=== PATIENT | male | born 1950 | race Two or more races ===

== ENCOUNTER 2018-01-05 06:50 | Inpatient (IN) | payer BC, OTHER ==
[2018-01-04 09:04] VITALS: BMI 34.7
[2018-01-05] MEDS ORDERED: BUPIVACAINE HCL/PF 0.5% (5MG/ML) 10 ML VIAL ONE (08:25)
[2018-01-05] MEDS ORDERED: MIDAZOLAM HCL 2 MG/2 ML SINGLE DOSE VIAL ONE ×2 (08:27)
--- NOTE | 2018-01-05 08:52 | CONSULT ---
Consult - text type - Consultation Consultation Note: full consult dictated imp: infected hardware left ankle plan: --> OR for LUCERO and currettage of bone with I&D
[2018-01-05] MEDS ORDERED: ONDANSETRON 4 MG/2 ML VIAL IVPUSH PRN (09:10)
[2018-01-05] MEDS ORDERED: PROPOFOL 20 ML ONE (09:11)
[2018-01-05] MEDS ORDERED: ceFAZolin SODIUM 1 GM VIAL ONE (09:13)
[2018-01-05] MEDS ORDERED: SODIUM CHLORIDE 0.9% P/F 10 ML VIAL IJ ONE (09:13)
[2018-01-05] MEDS ORDERED: DEXAMETHASONE SOD PHOSPHATE 4 MG/1 ML VIAL ONE (09:13)
[2018-01-05] MEDS ORDERED: DESFLURANE GAS 240 ML BOTTLE IH ONE (09:15)
--- NOTE | 2018-01-05 09:29 | CONS ---
DATE OF CONSULTATION: 01/05/2018 ORTHOPEDIC CONSULTATION/[facility] Patient is a 67-year-old male who was status post open reduction, internal fixation of the left distal tibia at [facility] 2-3 years ago. 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 Multiple attempts at antibiotics, wound care, hyperbaric all have been fruitless in stemming this infection. I had seen the patient in the office and we went through risks, benefits, and alternatives, and the patient was being admitted for removal of plate, curettage of the bone, irrigation, and debridement. Patient presents today in the same day surgical unit for this procedure to go forward. PHYSICAL EXAMINATION: He has good motion in hip, knee, ankle, and toes. He does have a draining sinus over the medial distal tibia a few centimeters up from the ankle joint. No erythema. No tenderness laterally. Calf is soft, nontender. Negative Woods sign, otherwise neurovascularly intact, good pulses. IMPRESSION: Infected hardware, left distal tibia with chronic draining sinus. Risks, benefits, and alternatives discussed with patient in great detail once again. Will bring the patient to the operating room for removal of hardware, exploration of the distal tibia, irrigation and debridement, possible bone curettage and drilling of any bone in the region. Patient understands that removal of hardware plate that was put in a while ago can be very difficult procedure, and repeat exploration of the distal tibia can be complicated with wound problems, skin problems, and the potential of significant complications postoperatively including wound issues, infection, possible below-knee amputation at a later date is a distinct although remote possibility. Patient understands and would like to go forward. We will admit the patient postoperatively for IV antibiotics as per Infectious Disease consultation. has been following the patient all along. ALY DUONG M.D. GABBY/[id number]
[2018-01-05] MEDS ORDERED: ePHEDrine SULFATE 50 MG/1 ML AMPULE ONE (11:09)
[2018-01-05] MEDS ORDERED: ceFAZolin SODIUM 1 GM VIAL IVPB ONE (11:21)
[2018-01-05] MEDS ORDERED: oxyCODONE HCL 5 MG TABLET PO PRN (11:34)
--- NOTE | 2018-01-05 11:38 | OP ---
Operative Note - Note: Operative Date: 01/05/18 ([facility]) Pre-Operative Diagnosis: left ankle chronic osteomyelitis s/p orif Operation: left ankle removal of hardware Post-Operative Diagnosis: Same as Pre-op Surgeon: José Luis Miller Instructional Aide: Kofi Boateng Anesthesiologist/ENVIRONMENTAL FIELD SERVICES TECHNICIAN: Gypsy Dickerson Anesthesia: General Specimens Removed: plate, screws Estimated Blood Loss (mls): 5 (tourniquet) Operative Report Dictated: Yes
[2018-01-05] MEDS: LACTATED RINGERS SOLUTION 1,000 ML IV SCH (14:05)
--- NOTE | 2018-01-05 16:02 | CON.ID ---
Consult Consult Specialty:: infectious diseases Referred by:: Reason for Consultation:: Non healing ulcer of the leg - History of Present Illness Chief Complaint: draiange tract of the leg,osteomylitis non healing wound of the left leg History of Present Illness: this is a 68 y/o male who was developed a tract on the left leg which has been constantly draining for more than couple of months patient who had an accident couple of years back and had hardware placed. patient continued to have drainage from the tract and the tract had indeed gone upto the bone patient was initially started on abx and cx were taken patient was also told the tract would not heal untill patient had the hardware removed finally the patient agreed for the same and underwent hardware removal initially when the cultures were send patient grew staph epidermidis and was started on oral abx. patient it seems could not tolerated it so after couple of days stopped taking abx now the patient is post op and has undergone removal of the hardware and the foot is in dressing patient also is a diabetic currently patient is comfortable and has no complaints all the cx have been send from the operating room - History Source History Provided By: Patient Limitations to Obtaining History: No Limitations - Alcohol/Substance Use Hx Alcohol Use: Yes (OCCAS) - Smoking History Smoking history: Never smoked Have you smoked in the past 12 months: No If you are a former smoker, when did you quit?: 50 years ago Home Medications - Allergies Allergies/Adverse Reactions: Allergies Allergy/AdvReac Type Severity Reaction Status Date / Time No Known Allergies Allergy Verified 01/05/18 07:34 - Home Medications Home Medications: Ambulatory Orders Amlodipine Besylate 5 mg PO DAILY 08/20/17 Farxiga 10 mg PO DAILY 08/20/17 Hydrochlorothiazide 25 mg PO DAILY 08/20/17 Lisinopril 40 mg PO DAILY 08/20/17 Metformin HCl 1,000 mg PO BID 08/20/17 Novolog 5 units SCJ DAILY 08/20/17 Pioglitazone HCl 30 mg PO DAILY 08/20/17 Rosuvastatin 20 mg PO HS 08/20/17 Toujeo Solostar 15 units SCJ DAILY 08/20/17 Oxycodone HCl/Acetaminophen [Percocet 5-325 mg Tablet -] 1 - 2 tab PO Q6H #30 tab MDD 8 01/05/18 Review of Systems - Review of Systems Constitutional: reports: No Symptoms Eyes: reports: No Symptoms HENT: reports: No Symptoms Neck: reports: No Symptoms Cardiovascular: reports: No Symptoms Respiratory: reports: No Symptoms Gastrointestinal: reports: No Symptoms Genitourinary: reports: No Symptoms Musculoskeletal: reports: Other (non healing wound of the left leg,osteo of the left leg) Integumentary: reports: No Symptoms Neurological: reports: No Symptoms Endocrine: reports: No Symptoms Hematology/Lymphatic: reports: No Symptoms Psychiatric: reports: No Symptoms Physical Exam Vital Signs: Vital Signs Temperature 97.5 F L 01/05/18 15:54 Pulse Rate 78 01/05/18 15:54 Respiratory Rate 18 01/05/18 15:54 Blood Pressure 119/71 01/05/18 15:54 O2 Sat by Pulse Oximetry (%) 97 01/05/18 15:00 Constitutional: Yes: Well Nourished, No Distress, Calm Eyes: Yes: Conjunctiva Clear HENT: Yes: Atraumatic, Normocephalic Neck: Yes: Supple, Trachea Midline Cardiovascular: Yes: Regular Rate and Rhythm Respiratory: Yes: Regular, CTA Bilaterally Gastrointestinal: Yes: Normal Bowel Sounds, Soft Musculoskeletal: Yes: Other Extremities: Yes: Other Wound/Incision: Yes: Dressing Dry and Intact Neurological: Yes: Alert, Oriented Psychiatric: Yes: Alert, Oriented Imaging - Results X-ray: Report Reviewed, Image Reviewed Cat Scan: Report Reviewed, Image Reviewed Assessment/Plan this patient with wound infection non healing tract and osteo of the left leg who underwent surgery with hardware removal now post op doing well we johnson start patient on abx osteo of the left leg dm wound infection obesity plan will start abx patient will need roasterman abx one cx from preop noted will await cx from post op depending on all the cx we will continue abx duration will be 6 to 8 weeks rest as per the primary team
[2018-01-05] MEDS ORDERED: INSULIN (NOVOLOG) ASPART 100 UNITS/ML 10ML VIAL ONE (16:57)
[2018-01-05] MEDS: CEFAZOLIN 2 GM/D5W 2 GM/50 ML ML IVPB SCH (17:00)
[2018-01-05] MEDS: INSULIN SLIDING SCALE (NOVOLOG) 1 VIAL SQ SCH ×2 (17:02→21:55)
[2018-01-05] MEDS: metFORMIN HCL 500 MG TABLET (FP) PO SCH (17:02)
[2018-01-05] MEDS ORDERED: AMPICILLIN NA/SULBACTAM NA 3 GM in SODIUM CHLORIDE 100 ML IVPB SCH (18:00)
[2018-01-05] MEDS: VANCOMYCIN 1,250 MG in DEXTROSE 5%-WATER - 250 ML IVPB SCH (18:16)
--- NOTE | 2018-01-05 18:46 | OP ---
DATE OF OPERATION: 01/05/2018 PREOPERATIVE DIAGNOSIS: Infected left distal tibia status post open reduction internal fixation. POSTOPERATIVE DIAGNOSIS: Infected left distal tibia status post open reduction internal fixation. PROCEDURE: Removal of hardware, incision and drainage, removal of tibial bone and curetting and saucerization of bone. SURGEON ATTENDING: José Luis Miller M.D. SAMPLE PATTERNMAKER: Elisabet Sifuentes ANESTHESIA: Regional and general. CLOSURE: Is 0 PDS for fascia and 2-0 nylon horizontal mattress for skin. ESTIMATED BLOOD LOSS: Negligible. TOURNIQUET TIME: Approximately 58 minutes. DESCRIPTION OF PROCEDURE: Patient taken to the operating room on January 05, 2018. Regional anesthesia as well as general anesthesia was administered by the anesthesiologist. Antibiotics were held until after cultures were obtained. Well-padded pneumatic tourniquet was placed on the left proximal thigh. The left lower extremity was prepped and draped in the usual sterile fashion. Leg was exsanguinated with Esmarch bandage and tourniquet was inflated to 275 mmHg. We utilized a part of patient's previous incision that was a horizontal portion around the medial malleolus that ended in the area where there was an open fracture 3 years ago, and then we propagated that up vertically along the aspect of the plate. We exposed the plate the entire length of the plate. The plate was overgrown with tibia proximally. This needed to be chiseled off with an osteotome, exposing the plate. The sinus tract from the anterior medial tibia was curetted and while we were placing on it, some purulence came out of that. That sinus tract was pulse irrigated and curetted and any necrotic tissue debrided. The screws distally came out without a problem; however, the most proximal screw was found to be broken and only the medial 1 cm of the screw came out. We used the broken screw set to over drill the shaft of the screw and then remove the screw. This was done almost half the diameter of the depth of the tibia. The bone on the edges of the plate was rongeured off to make no rigid edges. All screw holes were irrigated. The bed where the plate was was copiously curetted to remove out any fibrinous material and to get the bone to some bleeding surface. Any rough edges again were curetted and rongeured to make a smooth transition. Copious amounts of pulsed antibiotic irrigation was irrigated throughout the incision. X-rays reveal, although hardware was removed, there was no fracture. The wound was closed in layers with 0 PDS for the fascia and 2-0 horizontal mattress nylon suture for the skin. Sterile pressure dressing followed by was applied. Patient awakened from anesthesia and transferred to recovery in stable condition. Antibiotics were given at the beginning of the case right after cultures were taken. Mikel SOTO/[id number]
[2018-01-05] MEDS ORDERED: ROSUVASTATIN CA 10 MG TABLET (FP) ONE (21:49)
[2018-01-05] MEDS: ROSUVASTATIN CA 20 MG TABLET (FP) PO SCH (21:54)
[2018-01-06] MEDS: CEFAZOLIN 2 GM/D5W 2 GM/50 ML ML IVPB SCH ×2 (01:28→10:24)
[2018-01-06] MEDS ORDERED: PT OWN MED DRAWER 7, Y5N ONE ×3 (06:06→13:14)
[2018-01-06] MEDS: PIOGLITAZONE HCL 30 MG TABLET (FP) PO SCH (06:21)
[2018-01-06] MEDS: INSULIN SLIDING SCALE (NOVOLOG) 1 VIAL SQ SCH ×4 (06:21→22:05)
[2018-01-06] MEDS: metFORMIN HCL 500 MG TABLET (FP) PO SCH ×2 (06:21→17:12)
[2018-01-06] MEDS: INSULIN DETEMIR 100 UNITS/ML MDV SQ SCH (06:54)
[2018-01-06] MEDS: LACTATED RINGERS SOLUTION 1,000 ML IV SCH ×2 (07:34→10:25)
--- NOTE | 2018-01-06 09:37 | PN ---
Progress Note (short form) - Note Progress Note: Came to see pt post operatively, he was down at xray. Will follow up.
[2018-01-06] MEDS ORDERED: INSULIN ASPART SCJ SCH (10:00)
[2018-01-06] MEDS ORDERED: PATIENT'S OWN MEDICATION (NON-FORMULARY) (Farxiga 10 MG) PO SCH (10:00)
[2018-01-06] MEDS: LISINOPRIL 20 MG TABLET (FP) PO SCH (10:24)
[2018-01-06] MEDS: HYDROCHLOROTHIAZIDE 25 MG TABLET (FP) PO SCH (10:24)
[2018-01-06] MEDS: amLODIPine BESYLATE 5 MG TABLET (FP) PO SCH (10:24)
--- NOTE | 2018-01-06 13:53 | PN ---
Progress Note, Physician History of Present Illness: doing well no complaints had a repeat xray of the leg - Current Medication List Current Medications: Active Medications Amlodipine Besylate (Norvasc -) 5 mg PO DAILY [facility] Last Admin: 01/06/18 10:24 Dose: 5 mg Hydrochlorothiazide (Hctz -) 25 mg PO DAILY [facility] Last Admin: 01/06/18 10:24 Dose: 25 mg Lactated Ringer's (Lactated Ringers Solution) 1,000 mls @ 75 mls/hr IV ASDIR [facility] Last Admin: 01/06/18 10:25 Dose: Not Given Cefazolin Sodium/Dextrose (Ancef 2 Gm Premixed Ivpb -) 2 gm in 50 mls @ 100 mls /hr IVPB Q8H-IV [facility] Stop: 01/06/18 17:59 Last Admin: 01/06/18 10:24 Dose: 100 mls/hr Vancomycin HCl 1,250 mg/ (Dextrose) 250 mls @ 166.667 mls/hr IVPB Q24H [facility] PRN Reason: Protocol Last Admin: 01/05/18 18:16 Dose: 166.667 mls/hr Insulin Aspart (Novolog Vial Sliding Scale -) 1 vial SQ ACHS [facility] PRN Reason: Protocol Last Admin: 01/06/18 11:35 Dose: Not Given Insulin Detemir (Levemir Vial) 15 units SQ AM [facility] Last Admin: 01/06/18 06:54 Dose: 15 units Lisinopril (Prinivil) 40 mg PO DAILY [facility] Last Admin: 01/06/18 10:24 Dose: 40 mg Metformin HCl (Glucophage -) 1,000 mg PO BIDI [facility] Last Admin: 01/06/18 06:21 Dose: 1,000 mg Non-Formulary Medication (Farxiga) 10 mg PO DAILY [facility] Non-Formulary Medication (Novolog) 5 units SCJ DAILY [facility] Ondansetron HCl (Zofran Injection) 4 mg IVPUSH Q6H PRN PRN Reason: NAUSEA AND/OR VOMITING Oxycodone HCl (Roxicodone -) 5 mg PO Q6H PRN PRN Reason: PAIN LEVEL 6-10 Pioglitazone HCl (Actos -) 30 mg PO AM [facility] Last Admin: 01/06/18 06:21 Dose: 30 mg Rosuvastatin Calcium (Crestor -) 20 mg PO HS [facility] Last Admin: 01/05/18 21:54 Dose: 20 mg - Objective Vital Signs: Vital Signs Temperature 98.6 F 01/06/18 08:45 Pulse Rate 81 01/06/18 08:45 Respiratory Rate 18 01/06/18 08:45 Blood Pressure 114/65 01/06/18 08:45 O2 Sat by Pulse Oximetry (%) 97 01/06/18 09:02 Constitutional: Yes: No Distress, Calm Cardiovascular: Yes: Regular Rate and Rhythm Respiratory: Yes: Regular, CTA Bilaterally Gastrointestinal: Yes: Normal Bowel Sounds, Soft Musculoskeletal: Yes: WNL Extremities: Yes: Other Wound/Incision: Yes: Dressing Dry and Intact Neurological: Yes: Alert, Oriented Psychiatric: Yes: Alert, Oriented - ....Imaging X-ray: Report Reviewed, Image Reviewed Assessment/Plan osteo of the left leg dm wound infection obesity plan continue current abx awaiting for the cx report
[2018-01-06] MEDS: VANCOMYCIN 1,250 MG in DEXTROSE 5%-WATER - 250 ML IVPB SCH (17:28)
[2018-01-06] MEDS ORDERED: ROSUVASTATIN CA 10 MG TABLET (FP) ONE (22:01)
[2018-01-06] MEDS: ROSUVASTATIN CA 20 MG TABLET (FP) PO SCH (22:05)
[2018-01-07] MEDS ORDERED: PT OWN MED DRAWER 7, Y5N ONE (05:53)
[2018-01-07] MEDS: metFORMIN HCL 500 MG TABLET (FP) PO SCH ×2 (06:56→17:06)
[2018-01-07] MEDS: PIOGLITAZONE HCL 30 MG TABLET (FP) PO SCH (06:56)
[2018-01-07] MEDS: INSULIN DETEMIR 100 UNITS/ML MDV SQ SCH (06:56)
[2018-01-07] MEDS: INSULIN SLIDING SCALE (NOVOLOG) 1 VIAL SQ SCH ×4 (06:57→21:42)
[2018-01-07] MEDS: amLODIPine BESYLATE 5 MG TABLET (FP) PO SCH (10:14)
[2018-01-07] MEDS: LACTATED RINGERS SOLUTION 1,000 ML IV SCH (10:14)
[2018-01-07] MEDS: LISINOPRIL 20 MG TABLET (FP) PO SCH (10:14)
[2018-01-07] MEDS: HYDROCHLOROTHIAZIDE 25 MG TABLET (FP) PO SCH (10:14)
--- NOTE | 2018-01-07 11:32 | PN ---
Progress Note (short form) - Note Progress Note: Ortho Pt seen and examined s/p left ankle removal of hardware and I & D pod #2 Microbiology 01/05/18 10:20 Ankle - Right Medial Gram Stain - Final 01/05/18 10:20 Ankle - Right Medial Wound Culture - Preliminary Pending Organism Selected Entries 01/07/18 09:00 Temperature 98.9 F Pulse Rate 95 H Respiratory 18 Rate Blood Pressure 116/67 splint intact, minimal swelling, nvi a/p f/u cultures ABX as per ID PICC line as per ID nwb on LLE OK to d/c once abx arranged by ID d/w Dr. Easley
--- NOTE | 2018-01-07 14:19 | PN ---
Progress Note, Physician History of Present Illness: patient had some loose bm and abd cramps now better leg pain - Current Medication List Current Medications: Active Medications Amlodipine Besylate (Norvasc -) 5 mg PO DAILY [facility] Last Admin: 01/07/18 10:14 Dose: 5 mg Hydrochlorothiazide (Hctz -) 25 mg PO DAILY [facility] Last Admin: 01/07/18 10:14 Dose: 25 mg Lactated Ringer's (Lactated Ringers Solution) 1,000 mls @ 75 mls/hr IV ASDIR [facility] Last Admin: 01/07/18 10:14 Dose: 75 mls/hr Vancomycin HCl 1,250 mg/ (Dextrose) 250 mls @ 166.667 mls/hr IVPB Q24H [facility] PRN Reason: Protocol Last Admin: 01/06/18 17:28 Dose: 166.667 mls/hr Insulin Aspart (Novolog Vial Sliding Scale -) 1 vial SQ ACHS [facility] PRN Reason: Protocol Last Admin: 01/07/18 12:21 Dose: Not Given Insulin Detemir (Levemir Vial) 15 units SQ AM [facility] Last Admin: 01/07/18 06:56 Dose: 15 units Lisinopril (Prinivil) 40 mg PO DAILY [facility] Last Admin: 01/07/18 10:14 Dose: 40 mg Metformin HCl (Glucophage -) 1,000 mg PO BIDI [facility] Last Admin: 01/07/18 06:56 Dose: 1,000 mg Non-Formulary Medication (Farxiga) 10 mg PO DAILY [facility] Non-Formulary Medication (Novolog) 5 units SCJ DAILY [facility] Ondansetron HCl (Zofran Injection) 4 mg IVPUSH Q6H PRN PRN Reason: NAUSEA AND/OR VOMITING Oxycodone HCl (Roxicodone -) 5 mg PO Q6H PRN PRN Reason: PAIN LEVEL 6-10 Last Admin: 01/07/18 03:13 Dose: 5 mg Pioglitazone HCl (Actos -) 30 mg PO AM [facility] Last Admin: 01/07/18 06:56 Dose: 30 mg Rosuvastatin Calcium (Crestor -) 20 mg PO HS [facility] Last Admin: 01/06/18 22:05 Dose: 20 mg - Objective Vital Signs: Vital Signs Temperature 99.3 F 01/07/18 13:43 Pulse Rate 95 H 01/07/18 09:00 Respiratory Rate 18 01/07/18 09:00 Blood Pressure 116/67 01/07/18 09:00 O2 Sat by Pulse Oximetry (%) 96 01/06/18 21:00 Constitutional: Yes: No Distress, Calm Cardiovascular: Yes: Regular Rate and Rhythm Respiratory: Yes: Regular, CTA Bilaterally Gastrointestinal: Yes: Normal Bowel Sounds, Soft Musculoskeletal: Yes: WNL Extremities: Yes: Other Wound/Incision: Yes: Dressing Dry and Intact Neurological: Yes: Alert, Oriented Psychiatric: Yes: Alert, Oriented Assessment/Plan osteo of the left leg dm wound infection obesity repeat cx result noted still awaiting fo identification of the strep species and sensitivite plan await for final results continue vanco will check vanco trough patient will need 6 to 8 weeks of treatment
--- NOTE | 2018-01-07 14:54 | PATH ---
Surgical Pathology Report Patient Name: YOKASTA LUCAS [facility]. Rec. #: [id number] /Age/Gender: 1950 (Age: 67) / M Account: [id number] Location: [address] [place] [address]/[facility] Taken: 01/05/2018 Received: 01/05/2018 Reported: 01/07/2018 Physicians: José Luis Miller M.D. Specimen(s) Received A: HARDWARE FROM LEFT ANKLE B: BONE LEFT ANKLE Clinical History Osteomyelitis left ankle Final Diagnosis A. HARDWARE, ANKLE, LEFT, REMOVAL: SURGICAL HARDWARE. MACROSCOPIC DIAGNOSIS. B. BONE, ANKLE, LEFT, BIOPSY: BONE WITH ACUTE AND CHRONIC OSTEOMYELITIS. SOFT TISSUE WITH ACUTE AND CHRONIC INFLAMMATION. Electronically Signed Jane Day M.D. Gross Description A. Received fresh labeled "hardware left ankle," is a 16 cm in greatest dimension bowen metallic plate as well as 9 bowen metallic screws ranging from 1.2-4.5 cm in greatest dimension. No soft tissue is present. No sections are submitted, gross only. B. Received in formalin labeled "bone left ankle," is a 3.0 x 2.2 x 0.3 cm aggregate of ford fragments of bone and soft tissue. A medical service representative portion is submitted in one cassette, following decalcification. 01/06/201801/06/2018
[2018-01-07] MEDS: VANCOMYCIN 1,250 MG in DEXTROSE 5%-WATER - 250 ML IVPB SCH (16:37)
[2018-01-07] MEDS: ROSUVASTATIN CA 20 MG TABLET (FP) PO SCH (21:42)
[2018-01-08] MEDS: INSULIN DETEMIR 100 UNITS/ML MDV SQ SCH (06:20)
[2018-01-08] MEDS: PIOGLITAZONE HCL 30 MG TABLET (FP) PO SCH (06:20)
[2018-01-08] MEDS: metFORMIN HCL 500 MG TABLET (FP) PO SCH ×2 (06:20→16:46)
[2018-01-08] MEDS: INSULIN SLIDING SCALE (NOVOLOG) 1 VIAL SQ SCH ×4 (06:21→21:19)
[2018-01-08] MEDS: amLODIPine BESYLATE 5 MG TABLET (FP) PO SCH (09:25)
[2018-01-08] MEDS: HYDROCHLOROTHIAZIDE 25 MG TABLET (FP) PO SCH (09:25)
[2018-01-08] MEDS: LISINOPRIL 20 MG TABLET (FP) PO SCH (09:25)
--- NOTE | 2018-01-08 13:23 | PN ---
Progress Note, Physician History of Present Illness: Pt seen and examined. Events reviewed, results noted. S/p Lt ankle hardware removal. Pt has no specific complaints. States he is feeling well. - Current Medication List Current Medications: Active Medications Amlodipine Besylate (Norvasc -) 5 mg PO DAILY [facility] Last Admin: 01/08/18 09:25 Dose: 5 mg Hydrochlorothiazide (Hctz -) 25 mg PO DAILY [facility] Last Admin: 01/08/18 09:25 Dose: 25 mg Lactated Ringer's (Lactated Ringers Solution) 1,000 mls @ 75 mls/hr IV ASDIR [facility] Last Admin: 01/07/18 10:14 Dose: 75 mls/hr Ceftriaxone Sodium 2 gm/ (Dextrose) 100 mls @ 200 mls/hr IVPB DAILY [facility] Insulin Aspart (Novolog Vial Sliding Scale -) 1 vial SQ ACHS [facility] PRN Reason: Protocol Last Admin: 01/08/18 11:20 Dose: Not Given Insulin Detemir (Levemir Vial) 15 units SQ AM [facility] Last Admin: 01/08/18 06:20 Dose: 15 units Lisinopril (Prinivil) 40 mg PO DAILY [facility] Last Admin: 01/08/18 09:25 Dose: 40 mg Metformin HCl (Glucophage -) 1,000 mg PO BIDI [facility] Last Admin: 01/08/18 06:20 Dose: 1,000 mg Non-Formulary Medication (Farxiga) 10 mg PO DAILY [facility] Non-Formulary Medication (Novolog) 5 units SCJ DAILY [facility] Ondansetron HCl (Zofran Injection) 4 mg IVPUSH Q6H PRN PRN Reason: NAUSEA AND/OR VOMITING Pioglitazone HCl (Actos -) 30 mg PO AM [facility] Last Admin: 01/08/18 06:20 Dose: 30 mg Rosuvastatin Calcium (Crestor -) 20 mg PO HS [facility] Last Admin: 01/07/18 21:42 Dose: 20 mg - Objective Vital Signs: Vital Signs Temperature 98.8 F 01/08/18 09:00 Pulse Rate 94 H 01/08/18 09:00 Respiratory Rate 24 01/08/18 09:00 Blood Pressure 140/82 01/08/18 09:00 O2 Sat by Pulse Oximetry (%) 97 01/07/18 21:00 Constitutional: Yes: No Distress, Calm Neck: Yes: Supple Cardiovascular: Yes: Regular Rate and Rhythm Respiratory: Yes: Regular Gastrointestinal: Yes: Normal Bowel Sounds, Soft Genitourinary: Yes: WNL Wound/Incision: Yes: Dressing Dry and Intact Neurological: Yes: Alert, Oriented Labs: Wound culture: Strep viridans Problem List - Problems (1) Diabetic ulcer of ankle Code(s): E11.622 - TYPE 2 DIABETES MELLITUS WITH OTHER SKIN ULCER; L97.309 - NON -PRESSURE CHRONIC ULCER OF UNSP ANKLE WITH UNSP SEVERITY Assessment/Plan Lt ankle OM Lt ankle fracture s/p ORIF - hardware removed - wound culture isolate noted - d/c Vancomycin, start Ceftriaxone IV - will need at least 6 wks antibiotics - continue wound care - orthopedics f/u
[2018-01-08] MEDS: CEFTRIAXONE IN IS-OSM DEXTROSE 2 GM/50 ML BAG IVPB SCH (14:59)
[2018-01-08] MEDS: ROSUVASTATIN CA 20 MG TABLET (FP) PO SCH (21:19)
[2018-01-08] MEDS ORDERED: PT OWN MED DRAWER 7, Y5N ONE (21:53)
[2018-01-09] MEDS ORDERED: PT OWN MED DRAWER 7, Y5N ONE ×2 (05:55→10:18)
[2018-01-09] MEDS: INSULIN SLIDING SCALE (NOVOLOG) 1 VIAL SQ SCH ×4 (06:15→21:24)
[2018-01-09] MEDS: INSULIN DETEMIR 100 UNITS/ML MDV SQ SCH (06:38)
[2018-01-09] MEDS: metFORMIN HCL 500 MG TABLET (FP) PO SCH ×2 (06:38→16:56)
[2018-01-09] MEDS: PIOGLITAZONE HCL 30 MG TABLET (FP) PO SCH (06:38)
[2018-01-09] MEDS: LACTATED RINGERS SOLUTION 1,000 ML IV SCH (10:15)
[2018-01-09] MEDS: LISINOPRIL 20 MG TABLET (FP) PO SCH (10:20)
[2018-01-09] MEDS: amLODIPine BESYLATE 5 MG TABLET (FP) PO SCH (10:20)
[2018-01-09] MEDS: HYDROCHLOROTHIAZIDE 25 MG TABLET (FP) PO SCH (10:20)
[2018-01-09] MEDS: CEFTRIAXONE IN IS-OSM DEXTROSE 2 GM/50 ML BAG IVPB SCH (11:36)
[2018-01-09] MEDS: CEFTRIAXONE 2 GM in DEXTROSE 5%-WATER - 100 ML IVPB SCH (11:45)
--- NOTE | 2018-01-09 13:58 | PN ---
Progress Note (short form) - Note Progress Note: Ortho Pt seen and examined s/p left ankle removal of hardware and I & D pod #4 Selected Entries 01/09/18 07:46 Temperature 98.2 F Pulse Rate 82 Respiratory 20 Rate Blood Pressure 124/70 splint intact, minimal swelling, nvi cultures- strept, viridans a/p ABX as per ID PICC line as per ID ttwb on LLE d/c for Wednesday after PICC line d/w Dr. Easley
--- NOTE | 2018-01-09 14:42 | PN ---
Progress Note, Physician History of Present Illness: Pt feels well. Remains afebrile. No specific complaints. - Current Medication List Current Medications: Active Medications Amlodipine Besylate (Norvasc -) 5 mg PO DAILY [facility] Last Admin: 01/09/18 10:20 Dose: 5 mg Hydrochlorothiazide (Hctz -) 25 mg PO DAILY [facility] Last Admin: 01/09/18 10:20 Dose: 25 mg Lactated Ringer's (Lactated Ringers Solution) 1,000 mls @ 75 mls/hr IV ASDIR [facility] Last Admin: 01/09/18 10:15 Dose: Not Given Ceftriaxone Sodium 2 gm/ (Dextrose) 100 mls @ 200 mls/hr IVPB DAILY [facility] Last Admin: 01/09/18 11:45 Dose: 200 mls/hr Insulin Aspart (Novolog Vial Sliding Scale -) 1 vial SQ ACHS [facility] PRN Reason: Protocol Last Admin: 01/09/18 11:40 Dose: Not Given Insulin Detemir (Levemir Vial) 15 units SQ AM [facility] Last Admin: 01/09/18 06:38 Dose: 15 units Lisinopril (Prinivil) 40 mg PO DAILY [facility] Last Admin: 01/09/18 10:20 Dose: 40 mg Metformin HCl (Glucophage -) 1,000 mg PO BIDI [facility] Last Admin: 01/09/18 06:38 Dose: 1,000 mg Non-Formulary Medication (Farxiga) 10 mg PO DAILY [facility] Non-Formulary Medication (Novolog) 5 units SCJ DAILY [facility] Ondansetron HCl (Zofran Injection) 4 mg IVPUSH Q6H PRN PRN Reason: NAUSEA AND/OR VOMITING Pioglitazone HCl (Actos -) 30 mg PO AM [facility] Last Admin: 01/09/18 06:38 Dose: 30 mg Rosuvastatin Calcium (Crestor -) 20 mg PO HS [facility] Last Admin: 01/08/18 21:19 Dose: 20 mg - Objective Vital Signs: Vital Signs Temperature 98.8 F 01/09/18 13:56 Pulse Rate 89 01/09/18 13:56 Respiratory Rate 20 01/09/18 13:56 Blood Pressure 123/69 01/09/18 13:56 O2 Sat by Pulse Oximetry (%) 97 01/08/18 20:01 Constitutional: Yes: No Distress, Calm Cardiovascular: Yes: Regular Rate and Rhythm Respiratory: Yes: Regular, CTA Bilaterally Gastrointestinal: Yes: Normal Bowel Sounds, Soft Extremities: Yes: Other (Lt ankle dressing intact) Wound/Incision: Yes: Dressing Dry and Intact Neurological: Yes: Alert Problem List - Problems (1) Diabetic ulcer of ankle Code(s): 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
[2018-01-09] MEDS: ROSUVASTATIN CA 20 MG TABLET (FP) PO SCH (21:21)
[2018-01-09] MEDS ORDERED: INSULIN (NOVOLOG) ASPART 100 UNITS/ML 10ML VIAL ONE (21:24)
[2018-01-10] MEDS: metFORMIN HCL 500 MG TABLET (FP) PO SCH ×2 (06:32→17:27)
[2018-01-10] MEDS: INSULIN SLIDING SCALE (NOVOLOG) 1 VIAL SQ SCH ×3 (06:33→17:28)
[2018-01-10] MEDS: INSULIN DETEMIR 100 UNITS/ML MDV SQ SCH (06:33)
[2018-01-10] MEDS: PIOGLITAZONE HCL 30 MG TABLET (FP) PO SCH (06:33)
[2018-01-10] MEDS ORDERED: PICC LINE 8 ML FLUSH PROTOCOL IVPUSH PRN (09:51)
[2018-01-10] MEDS: LACTATED RINGERS SOLUTION 1,000 ML IV SCH (10:12)
[2018-01-10] MEDS ORDERED: INSULIN (NOVOLOG) ASPART 100 UNITS/ML 10ML VIAL ONE ×2 (10:15→17:13)
[2018-01-10] MEDS ORDERED: PT OWN MED DRAWER 7, Y5N ONE (10:16)
[2018-01-10] MEDS: amLODIPine BESYLATE 5 MG TABLET (FP) PO SCH (10:20)
[2018-01-10] MEDS: CEFTRIAXONE 2 GM in DEXTROSE 5%-WATER - 100 ML IVPB SCH (10:20)
[2018-01-10] MEDS: HYDROCHLOROTHIAZIDE 25 MG TABLET (FP) PO SCH (10:20)
[2018-01-10] MEDS: LISINOPRIL 20 MG TABLET (FP) PO SCH (10:21)
--- NOTE | 2018-01-10 10:28 | PN ---
Progress Note (short form) - Note Progress Note: Ortho Pt seen and examined s/p left ankle removal of hardware and I & D pod #5 Selected Entries 01/10/ 06:00 Temperature 98.4 F Pulse Rate 79 Respiratory 16 Rate Blood Pressure 104/70 splint intact, minimal swelling, nvi cultures- strept, viridans a/p ABX as per ID PICC line ttwb on LLE d/c after PICC line d/w Dr. Miller
--- NOTE | 2018-01-10 14:02 | PN ---
Progress Note, Physician History of Present Illness: patient doing well s/p removal of hardware post op day 5 doing well cx result noted - Current Medication List Current Medications: Active Medications Amlodipine Besylate (Norvasc -) 5 mg PO DAILY [facility] Last Admin: 01/10/18 10:20 Dose: 5 mg Hydrochlorothiazide (Hctz -) 25 mg PO DAILY [facility] Last Admin: 01/10/18 10:20 Dose: 25 mg IV Flush (Picc Line Flush) 8 ml IVPUSH PRN PRN PRN Reason: Protocol Lactated Ringer's (Lactated Ringers Solution) 1,000 mls @ 75 mls/hr IV ASDIR [facility] Last Admin: 01/10/18 10:12 Dose: Not Given Ceftriaxone Sodium 2 gm/ (Dextrose) 100 mls @ 200 mls/hr IVPB DAILY [facility] Last Admin: 01/10/18 10:20 Dose: 200 mls/hr Insulin Aspart (Novolog Vial Sliding Scale -) 1 vial SQ ACHS MARCELA PRN Reason: Protocol Last Admin: 01/10/18 10:26 Dose: Not Given Insulin Detemir (Levemir Vial) 15 units SQ AM [facility] Last Admin: 01/10/18 06:33 Dose: 15 units Lisinopril (Prinivil) 40 mg PO DAILY [facility] Last Admin: 01/10/18 10:21 Dose: 40 mg Metformin HCl (Glucophage -) 1,000 mg PO BIDI [facility] Last Admin: 01/10/18 06:32 Dose: 1,000 mg Non-Formulary Medication (Farxiga) 10 mg PO DAILY [facility] Non-Formulary Medication (Novolog) 5 units SCJ DAILY [facility] Ondansetron HCl (Zofran Injection) 4 mg IVPUSH Q6H PRN PRN Reason: NAUSEA AND/OR VOMITING Pioglitazone HCl (Actos -) 30 mg PO AM [facility] Last Admin: 01/10/18 06:33 Dose: 30 mg Rosuvastatin Calcium (Crestor -) 20 mg PO HS [facility] Last Admin: 01/09/18 21:21 Dose: 20 mg - Objective Vital Signs: Vital Signs Temperature 98.2 F 01/10/18 08:00 Pulse Rate 89 01/10/18 08:00 Respiratory Rate 20 01/10/18 08:00 Blood Pressure 128/71 01/10/18 08:00 O2 Sat by Pulse Oximetry (%) 97 01/10/18 08:00 Constitutional: Yes: No Distress, Calm HENT: Yes: Atraumatic Neck: Yes: Supple, Trachea Midline Cardiovascular: Yes: Regular Rate and Rhythm Respiratory: Yes: Regular, CTA Bilaterally Gastrointestinal: Yes: Normal Bowel Sounds, Soft Musculoskeletal: Yes: WNL Extremities: Yes: Other Wound/Incision: Yes: Dressing Dry and Intact Neurological: Yes: Alert, Oriented Psychiatric: Yes: Alert, Oriented Assessment/Plan osteo of the left leg/lt ankle om dm wound infection obesity sensitivities not back yet plan cx results noted sensitivites not back yet patient to receive 2 gm of ceftriaxone daily for 6 weeks cbc cmp esr and crp daily wound care
[2018-01-10 15:00] VITALS: BP 124/66; PULSE 103; TEMP 97.8
== END 2018-01-10 18:01 | disposition home or self-care (01) | DRG 493 ==
LOC: JSAMEDAYSX 06:50 → EDSTATUS 08:45 → J6S 15:43
PROVIDERS: ADMIT Orthopaedic Surgery; ATTEND Orthopaedic Surgery
PROC: 0QBH0ZZ Excision of Left Tibia, Open Approach (ICD-10-PCS; 2018-01-05)
PROC: 0J9R0ZX Drainage of Left Foot Subcutaneous Tissue and Fascia, Open Approach, Diagnostic (ICD-10-PCS; 2018-01-05)
PROC: 0SPG04Z Removal of Internal Fixation Device from Left Ankle Joint, Open Approach (ICD-10-PCS; principal; 2018-01-05 08:45)
PROC: 02HV33Z Insertion of Infusion Device into Superior Vena Cava, Percutaneous Approach (ICD-10-PCS; 2018-01-10)
DX: T84.623A Infection and inflammatory reaction due to internal fixation device of left tibia, initial encounter (principal); M86.8X7 Other osteomyelitis, ankle and foot; L97.309 Non-pressure chronic ulcer of unspecified ankle with unspecified severity; Y83.8 Other surgical procedures as the cause of abnormal reaction of the patient, or of later complication, without mention of misadventure at the time of the procedure; Y92.89 Other specified places as the place of occurrence of the external cause; E11.622 Type 2 diabetes mellitus with other skin ulcer; E66.8 Other obesity; Z68.34 Body mass index [BMI] 34.0-34.9, adult
CPT/HCPCS: 36569; 73610-TC-LT-FY; 76000-TC-FY; 77001-TC-FY; 82962; 87070; 87077; 87205; 88300-TC; 88307-TC; 88311-TC; 94760; 97116-GP; 97161-GP; C1751; G0480